=== PATIENT | male | born 1970 | race Caucasian/White ===

== ENCOUNTER 2018-04-24 19:20 | Emergency (ER) | payer OTHER ==
[~2018-04-24] VITALS: Ht 175.3 cm; Wt 72.0 kg
[2018-04-24] MEDS ORDERED: QUET25TA PO (19:30)
[2018-04-24] MEDS ORDERED: LIB25 PO (19:30)
[2018-04-24 21:29] VITALS: BP 139/81
== END 2018-04-24 21:30 | disposition home or self-care (01) ==
LOC: EMS 19:21
DX: F10.239 Alcohol dependence with withdrawal, unspecified (principal); F17.210 Nicotine dependence, cigarettes, uncomplicated; F32.9 Major depressive disorder, single episode, unspecified; G47.00 Insomnia, unspecified; Z79.899 Other long term (current) drug therapy; Y90.9 Presence of alcohol in blood, level not specified
CPT/HCPCS: 99283